=== PATIENT | female | born 1990 | race Caucasian/White ===

== ENCOUNTER → 2016-12-27 | Day surgery (SDC) | payer BC ==
[~2016-12-27] VITALS: Ht 167.6 cm; Wt 125.6 kg
[~2016-12-27] MED LIST: METOPROLOL TART25 MG PO; PANTOPRAZOLE SO40 MG PO; PRISTIQ ER100 MG PO; REXULTI PO; WELLBUTRIN XL150 MG PO; ZANTAC 150 MG150 MG PO
== END | disposition home or self-care (01) ==
LOC: OR 06:16
PROVIDERS: Surgery
PROC: 0DB48ZX Excision of Esophagogastric Junction, Via Natural or Artificial Opening Endoscopic, Diagnostic (ICD-10-PCS; 2016-12-27)
PROC: 0DB68ZX Excision of Stomach, Via Natural or Artificial Opening Endoscopic, Diagnostic (ICD-10-PCS; principal; 2016-12-27 08:15)
DX: K20.9 Esophagitis, unspecified (principal); I10 Essential (primary) hypertension; E66.01 Morbid (severe) obesity due to excess calories; Z86.69 Personal history of other diseases of the nervous system and sense organs; Z88.2 Allergy status to sulfonamides; Z88.8 Allergy status to other drugs, medicaments and biological substances; Z79.899 Other long term (current) drug therapy; Z68.41 Body mass index [BMI] 40.0-44.9, adult; Z90.49 Acquired absence of other specified parts of digestive tract; Z87.19 Personal history of other diseases of the digestive system
CPT/HCPCS: 84703; J7120

== ENCOUNTER → 2021-03-24 | Outpatient (CLI) | payer OTHER ==
[~2021-03-24] MED LIST changes: +CIPRO500 MG PO; +CIPRODEX OTIC7.5 ML EARLF; +IBU600 MG PO; +PERCOCET 5-3251 EACH PO
[2021-03-24 16:12] LABS: HEMOGLOBIN 14.1 gm/dl (12.3-15.3); RED BLOOD COUNT 4.77 M/UL (4.00-5.10); WHITE BLOOD COUNT 11.7 K/UL (4.5-11.0)
[2021-03-24 17:00] LABS: BUN/CREATININE RATIO 11 (0-10)
== END ==
LOC: LAB 13:47
PROVIDERS: Internal Medicine Cardiovascular Disease
DX: R00.2 Palpitations (principal)
CPT/HCPCS: 36415; 80053; 84439; 84443; 85025

== ENCOUNTER → 2022-02-22 | Outpatient (CLI) | payer BC | LOC: KOH-I 11:05 | DX: M25.512 Pain in left shoulder (principal); M25.561 Pain in right knee; M25.562 Pain in left knee; M25.571 Pain in right ankle and joints of right foot; M25.572 Pain in left ankle and joints of left foot | CPT/HCPCS: 73030; 73562; 73610 ==

== ENCOUNTER → 2022-03-09 | Outpatient (CLI) | payer BC | LOC: LAB 10:32 | DX: L65.9 Nonscarring hair loss, unspecified (principal); Z87.42 Personal history of other diseases of the female genital tract | CPT/HCPCS: 36415; 82607; 83036; 84443 ==